=== PATIENT | female | born 1940 | race Caucasian/White ===

== ENCOUNTER 2016-08-01 11:17 | Inpatient (IN) | payer MEDICARE ==
[~2016-08-01] VITALS: Ht 167.6 cm; Wt 94.3 kg
[~2016-08-01 11:17] MED LIST: AMBI5TAB PO; CEPH500C3 PO; CIPR750T10 PO; DILT31TA PO; NITR25SU PO; STOO100C PO
[2016-08-01 11:24] VITALS: BP 117/62; PULSE 93; RESP 16; TEMP 97.7; O2SAT 95
[2016-08-01] MEDS ORDERED: PROCHLORPERAZINE INJ 10 MG/2 ML VIAL IV PUSH ONE (11:45)
[2016-08-01] MEDS ORDERED: SODIUM CHLORIDE 0.9% FLUSH 10 ML FLUSH IVF PRN (11:45)
[2016-08-01] MEDS ORDERED: diphenhydrAMINE HCL 50 MG/ML VIAL IV PUSH ONE (11:45)
[2016-08-01] MEDS ORDERED: SODIUM CHLOR 0.9% 1000 ML INJ 1,000 ML IV ONE ×2 (11:45)
--- NOTE | 2016-08-01 11:49 | PD ---
HPI . Nausea and vomiting and dehydration Chief Complaint: GI Complaint Time Seen by Provider: 11:32 Travel History International Travel<30 days: No Contact w/Intl Traveler<30days: No Traveled to known affect area: No History of Present Illness HPI The patient presents with a 4 to five-day history of nausea and vomiting. Her symptoms have waxed and waned. She is occasionally able to tolerate food and fluids. She denies any diarrhea. She denies any abdominal pain. She has had some chills and shaking. The patient reports dysuria at the onset of her symptoms. She called her doctor and was given a prescription for Macrobid. That was started on 07/28. She subsequently obtained a prescription for Zofran on 07/29. The patient reports that she is getting worse rather than better with this treatment. She has stopped both medications as of yesterday. Patient now reports markedly decreased urine output. She no longer has dysuria. 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) Cardiovascular Problems: No Endocrine: No Gastrointestinal Disorders: Yes (anal ca) Genitourinary: Yes (recurrent uti's 2ndary to cervical ca 20 years states urethra damaged and h) Immune Disorder: No Implanted Vascular Access Dvce: Yes Kidney Stones: No Musculoskeletal: No Neurologic: No Psychiatric: No Reproductive: No Respiratory: No Renal Failure: No Menopausal: Yes Past Surgical History Abdominal Surgery: No Cardiac Surgery: No Cholecystectomy: Yes Ear Surgery: No Endocrine Surgery: No Eye Surgery: No Genitourinary Surgery: No Gynecologic Surgery: No Neurologic Surgery: No Oral Surgery: No Thoracic Surgery: No Other Surgery: No Social History Alcohol Use: No Tobacco Use: No Substance Use: No Allergies-Medications (Allergen,Severity, Reaction): Coded Allergies: Sulfa (Verified Allergy, Severe, 08/01/16) DISORIENTATION / VOMITING Reported Meds & Prescriptions Reported Meds & Active Scripts Active Reported Prilosec (Omeprazole Magnesium) 20 Mg Tab 2 Tab PO DAILY Diltiazem (Diltiazem HCl) 30 Mg Tab 15 Mg PO HS Ambien (Zolpidem Tartrate) 5 Mg Tab 5 Mg PO HS PRN Cipro (Ciprofloxacin HCl) 500 Mg Tab 500 Mg PO DAILY Review of Systems Except as stated in HPI: all other systems reviewed are Neg General / Constitutional: Positive: Chills HENT: Positive: Other (dry mouth) Gastrointestinal: Positive: Nausea, Vomiting, No: Diarrhea, Abdominal Pain Genitourinary: Positive: Decreased Urinary Output Physical Exam Narrative GENERAL: Awake and alert and in no acute distress. SKIN: Warm and dry. HEAD: Atraumatic. Normocephalic. EYES: Pupils equal and round. ENT: No nasal bleeding or discharge. Mucous membranes pink but dry. NECK: Trachea midline. Neck is supple. CARDIOVASCULAR: Regular rate and rhythm. RESPIRATORY: No accessory muscle use. GASTROINTESTINAL: Abdomen soft, non-tender, nondistended. MUSCULOSKELETAL: No obvious deformities. No edema. NEUROLOGICAL: Awake and alert. No obvious cranial nerve deficits. Motor grossly within normal limits. Normal speech. PSYCHIATRIC: Appropriate mood and affect; insight and judgment normal. Data Data Last Documented VS Vital Signs Date Time Temp Pulse Resp B/P Pulse Ox O2 Delivery O2 Flow Rate FiO2 08/01/16 12:50 84 16 123/57 100 Room Air 08/01/16 11:24 97.7 Orders Complete Blood Count With Diff (08/01/16 11:38) Comprehensive Metabolic Panel (08/01/16 11:38) Urinalysis - C+S If Indicated (08/01/16 11:38) Iv Access Insert/Monitor (08/01/16 11:38) Sodium Chlor 0.9% 1000 Ml Inj (Ns 1000 M (08/01/16 11:45) Sodium Chloride 0.9% Flush (Ns Flush) (08/01/16 11:45) Sodium Chlor 0.9% 1000 Ml Inj (Ns 1000 M (08/01/16 11:45) Sodium Chlor 0.9% 1000 Ml Inj (Ns 1000 M (08/01/16 11:45) Prochlorperazine Inj (Compazine Inj) (08/01/16 11:45) Diphenhydramine Inj (Benadryl Inj) (08/01/16 11:45) Urine Culture (08/01/16 11:40) Ceftriaxone Inj (Rocephin Inj) (08/01/16 13:15) Ct Abd/Pel W Iv Contrast(Rout) (08/01/16 13:20) Labs Laboratory Tests Test 08/01/16 08/01/16 11:40 12:05 Urine Collection Type CLEAN CATCH Urine Color RENALDO Urine Turbidity CLEAR Urine pH 5.0 Urine Specific [place] 1.032 Urine Protein 100 mg/dL Urine Glucose (UA) NEG mg/dL Urine Ketones 80 OR GREATER mg/dL Urine Occult Blood TRACE Urine Nitrite NEG Urine Bilirubin SMALL Urine Leukocyte Esterase TRACE Urine RBC 4-9 /hpf Urine WBC 20-24 /hpf Urine WBC Clumps FEW Urine Squamous Epithelial 6-8 /hpf Cells Urine Renal Epithelial Cells 0-5 /hpf Microscopic Urinalysis Comment CULTURE INDICATED Urine Collection Time 11:40 White Blood Count 11.4 TH/MM3 Red Blood Count 5.06 MIL/MM3 Hemoglobin 14.7 GM/DL Hematocrit 43.2 % Mean Corpuscular Volume 85.3 FL Mean Corpuscular Hemoglobin 29.0 PG Mean Corpuscular Hemoglobin 34.0 % Concent Red Cell Distribution Width 12.8 % Platelet Count 195 TH/MM3 Mean Platelet Volume 9.2 FL Neutrophils (%) (Auto) 92.9 % Lymphocytes (%) (Auto) 3.0 % Monocytes (%) (Auto) 3.0 % Eosinophils (%) (Auto) 0.5 % Basophils (%) (Auto) 0.6 % Neutrophils # (Auto) 10.6 TH/MM3 Lymphocytes # (Auto) 0.3 TH/MM3 Monocytes # (Auto) 0.3 TH/MM3 Eosinophils # (Auto) 0.1 TH/MM3 Basophils # (Auto) 0.1 TH/MM3 CBC Comment DIFF FINAL Differential Comment Sodium Level 139 MEQ/L Potassium Level 3.5 MEQ/L Chloride Level 102 MEQ/L Carbon Dioxide Level 26.9 MEQ/L Anion Gap 10 MEQ/L Blood Urea Nitrogen 20 MG/DL Creatinine 0.89 MG/DL Estimat Glomerular Filtration 62 ML/MIN Rate Random Glucose 115 MG/DL Calcium Level 9.3 MG/DL Total Bilirubin 3.2 MG/DL Aspartate Amino Transf 197 U/L (AST/SGOT) Alanine Aminotransferase 339 U/L (ALT/SGPT) Alkaline Phosphatase 271 U/L Total Protein 7.2 GM/DL Albumin 2.9 GM/DL [facility] Medical Decision Making Medical Screen Exam Complete: Yes Emergency Medical Condition: Yes Medical Record Reviewed: Yes (past medical history is significant for both cervical and anal cancer. She underwent radiation therapy. 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 She is on prophylactic Cipro.) Differential Diagnosis Differential diagnosis includes but is not limited to viral gastritis, food poisoning, pancreatitis, pneumonia, hepatitis, acute coronary syndrome, Narrative Course Patient presents with nausea and vomiting and very poor urinary output. She will be hydrated here. Routine labs and ordered. CBC & BMP Diagram 08/01/16 12:05 T bili 3.2 AST 197 ALT 339 alk phos 271 UA>>trace LE, 20-24 WBC, + WBC clumps Physician Communication Physician Communication Case discussed with who has requested a CT of her abdomen and pelvis to further evaluate her elevated LFTs. He will admit the patient. Diagnosis Primary Impression: Dehydration Additional Impressions: UTI (urinary tract infection) Qualified Code: N30.00 - Acute cystitis without hematuria Elevated LFTs Admitting Information Admitting Physician Requests: Admit Condition: Stable Althea Mccoy MD Aug 01, 2016 11:49
[2016-08-01 11:56] LABS: BLOOD, URINE TRACE (NEG); GLUCOSE,URINE NEG (NEG); NITRITE,URINE NEG (NEG)
[2016-08-01 12:04] LABS: KETONE, URINE 80 OR GREATER mg/dL (NEG)
[2016-08-01] MEDS: SODIUM CHLOR 0.9% 1000 ML INJ 1,000 ML IV SCH ×4 (12:11→14:45)
[2016-08-01 12:13] LABS: METHOD OF COLLECTION CLEAN CATCH; URINE COLOR AMBER (YELLW/STRAW)
[2016-08-01 12:14] LABS: COMMENT (UR) CULTURE INDICATED; CULTURE IF INDICATED CULTURE INDICATED; RENAL EPITHELIAL CELLS 0-5 /hpf
[2016-08-01 12:16] LABS: AUTOMATED NEUTROPHIL # 10.6 TH/MM3 (1.8-7.7); BASOPHIL # 0.1 TH/MM3 (0-0.2); BASOPHIL % 0.6 % (0.0-2.0); EOSINOPHIL # 0.1 TH/MM3 (0-0.4); EOSINOPHIL % 0.5 % (0.0-4.0); HEMATOCRIT 43.2 % (35.0-46.0); LYMPHOCYTE # 0.3 TH/MM3 (1.0-4.8); MEAN CELL VOLUME 85.3 FL (80.0-100.0); NEUT % 92.9 % (16.0-70.0); PLATELET COUNT 195 TH/MM3 (150-450); RED BLOOD COUNT 5.06 MIL/MM3 (4.00-5.30); RED CELL DISTRIBUTION WIDTH 12.8 % (11.6-17.2); WHITE BLOOD COUNT 11.4 TH/MM3 (4.0-11.0)
[2016-08-01 12:19] LABS: HEMO FLAGS DIFF FINAL
[2016-08-01 12:23] LABS: CHLORIDE 102 MEQ/L (98-107); POTASSIUM 3.5 MEQ/L (3.5-5.1); SODIUM (NA) 139 MEQ/L (136-145)
[2016-08-01] MEDS ORDERED: PRIL20TA2 PO (12:24)
[2016-08-01] MEDS ORDERED: DILT30TA PO (12:24)
[2016-08-01] MEDS ORDERED: CIPR-9 PO (12:24)
[2016-08-01] MEDS ORDERED: AMBI5TAB PO (12:24)
[2016-08-01 12:28] LABS: ANION GAP 10 MEQ/L (5-15); BICARBONATE 26.9 MEQ/L (21.0-32.0)
[2016-08-01 12:29] LABS: BLOOD UREA NITROGEN 20 MG/DL (7-18)
[2016-08-01 12:32] LABS: ALT (GPT) 339 U/L (10-53); AST (GOT) 197 U/L (15-37); GLOMERULAR FILTRATION RATE 62 ML/MIN (>89)
[2016-08-01 12:33] LABS: TOTAL BILIRUBIN ADULT 3.2 MG/DL (0.2-1.0)
[2016-08-01 12:34] LABS: ALKALINE PHOSPHATASE 271 U/L (45-117)
[2016-08-01 12:50] VITALS: BP 123/57; PULSE 84; RESP 16; O2SAT 100
[2016-08-01] MEDS ORDERED: cefTRIAXone INJ 1,000 MG in SODIUM CHLORIDE 0.9% INJ 100 ML IV ONE (13:15)
[2016-08-01] MEDS ORDERED: NALOXONE HCL 0.4 MG/ML AMP IV PRN (13:45)
[2016-08-01 13:51] VITALS: BP 127/52; PULSE 84; RESP 18; O2SAT 100
[2016-08-01] MEDS ORDERED: MAGNESIUM HYDROXIDE SUSP 30 ML CUP PO PRN (14:00)
[2016-08-01] MEDS ORDERED: BISACODYL 10 MG SUPP RECTAL PRN (14:00)
[2016-08-01] MEDS ORDERED: LACTULOSE SYRUP 20 GM/30 ML CUP PO PRN (14:00)
[2016-08-01] MEDS ORDERED: ONDANSETRON HCL 4 MG/2 ML VIAL IVP PRN (14:00)
[2016-08-01] MEDS ORDERED: MULTTAB67 PO (14:00)
[2016-08-01] MEDS ORDERED: SENNOSIDES 8.6 MG TAB PO PRN (14:00)
[2016-08-01] MEDS ORDERED: SODIUM CHLOR 0.45% 1000 ML INJ 1,000 ML IV SCH (14:00)
[2016-08-01] MEDS ORDERED: IOHEXOL 350 MG/ML 10 ML VIAL (for RAD DIAG) IV ONE (14:33)
--- NOTE | 2016-08-01 14:38 | RADHPO ---
EXAM DATE/TIME: 08/01/2016 14:10 [facility] COMPARISON: No previous studies available for comparison. INDICATIONS : Urine tract infection, dehydration, nausea. Abnormal liver tests. IV CONTRAST: 96 cc Omnipaque 350 (iohexol) IV ORAL CONTRAST: No oral contrast ingested. RADIATION DOSE: 21.06 CTDIvol (mGy) MEDICAL HISTORY : None SURGICAL HISTORY : None. ENCOUNTER: Initial ACUITY: 1 day PAIN SCALE: 5/10 LOCATION: Right abdomen TECHNIQUE: Volumetric scanning of the abdomen and pelvis was performed. Using automated exposure control and ad justment of the mA and/or kV according to patient size, radiation dose was kept as low as reasonably achievable to obtain optimal diagnostic quality images. FINDINGS: LOWER LUNGS: The visualized lower lungs are clear. LIVER: Homogeneous density without concerning lesion. There is an 8mm left hepatic cyst. There is no dilati on of the biliary tree. There are clips in the gallbladder fossa related to prior cholecystectomy.. SPLEEN: Normal size without lesion. PANCREAS: Within normal limits. KIDNEYS: Normal in size and shape. There is no mass, stone or hydronephrosis. There is fullness of the collec ting systems versus renal sinus cysts. There is no hydroureter. ADRENAL GLANDS: Within normal limits. VASCULAR: There is no aortic aneurysm. There is severe atherosclerotic disease. BOWEL/MESENTERY: The stomach, small bowel, and colon demonstrate no acute abnormality. There is no free intraperitone al air or fluid. ABDOMINAL WALL: Within normal limits. RETROPERITONEUM: There is no lymphadenopathy. There is abnormal thickening of the fascial planes within the pelvis bridger ng with retrorectal soft tissue thickening. There is extraperitoneal calcification in the right infer ior pelvis. BLADDER: No wall thickening or mass. REPRODUCTIVE: There is a hypo-enhancing mass in the region of the uterine body or fundus measuring approximately 2. 2 cm. INGUINAL: There is no lymphadenopathy or hernia. MUSCULOSKELETAL: There are degenerative changes of the spine. CONCLUSION: 1. There are pelvic changes characteristic of prior radiation therapy consistent with the patient's h istory. 2. There is a 2.2 cm hypoenhancing mass in the region of the uterine body or fundus. While this could represent a fibroid it is nonspecific. Suggest correlating with any prior imaging studies. Ultrasoun d could further evaluate if needed clinically. 3. Nonacute findings include mild hepatomegaly and severe atherosclerotic disease. Chris Brizuela MD on August 01, 2016 at 14:26 Board Certified Radiologist. This report was verified electronically.
[2016-08-01 15:15] VITALS: BP 118/61; PULSE 73; RESP 18; TEMP 97.2; O2SAT 96
[2016-08-01] MEDS ORDERED: MORPHINE SULFATE 4 MG/ML INJ IV PUSH PRN (15:30)
[2016-08-01] MEDS: SODIUM CHLOR 0.45% 1000 ML INJ 1,000 ML IV SCH (15:34)
[2016-08-01] MEDS ORDERED: PILL SPLITTER OTHER PRN (15:45)
--- NOTE | 2016-08-01 15:48 | HHI.HP ---
HPI [facility] Primary Care Physician Larry Ko MD Admission Diagnosis UTI, dehydration, elevated LFTs Chief Complaint: uti ,elevated lft back pain nausea and vomit Travel History International Travel<30 Days: No Contact w/Intl Traveler <30 Da: No Traveled to Known Affected Are: No History of Present Illness 76 y/o female with hx many years ago cervical cancer,anal cancer who about 1 week ago began having flank like discomfort burning urination had cipro at home and started taking cipro felt a little better then symptoms recurred called her doctor med changed to macrobid and then had increasing N and V and nausea med called in ,no improvement and came to er found to have significant elevation LFT and uti admit for further evaluaion . Denies any rt sided abdominal pain. 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 SKIN: No rashes, ecchymoses or lesions. Cool and dry. HEAD: Atraumatic. Normocephalic. No temporal or scalp tenderness. EYES: Pupils equal round and reactive. Extraocular motions intact. No scleral icterus. No injection or drainage. ENT: Nose without bleeding, purulent drainage or septal hematoma. Throat without erythema, tonsillar hypertrophy or exudate. Uvula midline. Airway patent. NECK: Trachea midline. No JVD or lymphadenopathy. Supple, nontender, no meningeal signs. CARDIOVASCULAR: Regular rate and rhythm without murmurs, gallops, or rubs. RESPIRATORY: Clear to auscultation. Breath sounds equal bilaterally. No wheezes , rales, or rhonchi. GASTROINTESTINAL: Abdomen soft, non-tender, nondistended. No hepato-splenomegaly , or palpable masses. No guarding. MUSCULOSKELETAL: Extremities without clubbing, cyanosis, or edema. No joint tenderness, effusion, or edema noted. No calf tenderness. Negative Homans sign bilaterally. NEUROLOGICAL: Awake and alert. Cranial nerves II through XII intact. Motor and sensory grossly within normal limits. Five out of 5 muscle strength in all muscle groups. Normal speech. Laboratory Laboratory Tests Test 08/01/16 08/01/16 11:40 12:05 Urine Collection Type CLEAN CATCH Urine Color RENALDO Urine Turbidity CLEAR Urine pH 5.0 Urine Specific [place] 1.032 Urine Protein 100 Urine Glucose (UA) NEG Urine Ketones 80 OR GREATER Urine Occult Blood TRACE Urine Nitrite NEG Urine Bilirubin SMALL Urine Leukocyte Esterase TRACE Urine RBC 4-9 Urine WBC 20-24 Urine WBC Clumps FEW Urine Squamous Epithelial 6-8 Cells Urine Renal Epithelial Cells 0-5 Microscopic Urinalysis Comment CULTURE INDICATED Urine Collection Time 11:40 White Blood Count 11.4 Red Blood Count 5.06 Hemoglobin 14.7 Hematocrit 43.2 Mean Corpuscular Volume 85.3 Mean Corpuscular Hemoglobin 29.0 Mean Corpuscular Hemoglobin 34.0 Concent Red Cell Distribution Width 12.8 Platelet Count 195 Mean Platelet Volume 9.2 Neutrophils (%) (Auto) 92.9 Lymphocytes (%) (Auto) 3.0 Monocytes (%) (Auto) 3.0 Eosinophils (%) (Auto) 0.5 Basophils (%) (Auto) 0.6 Neutrophils # (Auto) 10.6 Lymphocytes # (Auto) 0.3 Monocytes # (Auto) 0.3 Eosinophils # (Auto) 0.1 Basophils # (Auto) 0.1 CBC Comment DIFF FINAL Differential Comment Sodium Level 139 Potassium Level 3.5 Chloride Level 102 Carbon Dioxide Level 26.9 Anion Gap 10 Blood Urea Nitrogen 20 Creatinine 0.89 Estimat Glomerular Filtration 62 Rate Random Glucose 115 Calcium Level 9.3 Total Bilirubin 3.2 Aspartate Amino Transf 197 (AST/SGOT) Alanine Aminotransferase 339 (ALT/SGPT) Alkaline Phosphatase 271 Total Protein 7.2 Albumin 2.9 Date/Time Procedure Status Source Growth 08/01/16 11:40 Urine Culture Received Urine Clean Catch Pending Result Diagram: 08/01/16 1205 08/01/16 1205 Imaging Last 24 hours Impressions Abdomen/Pelvis CT 08/01/16 1320 Signed Impressions: Service Date/Time: Monday, August 01, 2016 14:10 - CONCLUSION: 1. There are pelvic changes characteristic of prior radiation therapy consistent with the patient's history. 2. There is a 2.2 cm hypoenhancing mass in the region of the uterine body or fundus. While this could represent a fibroid it is nonspecific. Suggest correlating with any prior imaging studies. Ultrasound could further evaluate if needed clinically. 3. Nonacute findings include mild hepatomegaly and severe atherosclerotic disease. Chris Brizuela MD Course in er given IV fluids and started on rocephin Assessment and Plan Problem List: (1) UTI (urinary tract infection) Status: Acute Plan: start rocephin ,will obtain pelvic and renal ultrasound as CT shows ? mass in uterine area and hepatomegaly (2) Dehydration Status: Acute Plan: IV fluid recheck labs (3) Elevated LFTs Status: Acute Plan: IV fluid GI consult recheck labs Assessment and Plan further plan as case progresses Code Status full Discussed Condition With patient Physician Certification 2 Midnight Certification Type: Admission for Inpatient Services Order for Inpatient Services The services are ordered in accordance with Medicare regulations or non- Medicare payer requirements, as applicable. In the case of services not specified as inpatient-only, they are appropriately provided as inpatient services in accordance with the 2-midnight benchmark. Estimated LOS (days): 3 3 days is the estimated time the patient will need to remain in the hospital, assuming treatment plan goals are met and no additional complications. Post-Hospital Plan: Not yet determined Problem Qualifiers (1) UTI (urinary tract infection): Qualified Code: N30.00 - Acute cystitis without hematuria Rodrigo Alatorre MD Aug 01, 2016 15:48
[2016-08-01] MEDS: PANTOPRAZOLE SODIUM 40 MG VIAL IV PUSH SCH (16:03)
[2016-08-01] MEDS: traMADol HCL 50 MG TAB PO PRN (16:04)
--- NOTE | 2016-08-01 16:46 | PD.CONS ---
HPI History of Present Illness This is a 76 year old [lady] with hx anal ca, cervical ca who presented to hospital with n/v and was found to have elevated liver enzymes. A week ago she was having burning urination like she had a UTI and took cipro. THen her Dr gave her macrobid and she started having n/v. The few days she was taking macrobid she felt she had chills and sweats. She also noticed her urine appeared orange and thought it was from vitamin drink. Denied taking azo. SHe says in the she recalls being told she had elevated LFTs and had a liver bx but nothing was found; at the time she admits taking alot of tylenol. She is not currently taking tylenol but does admit freq use NSAIDs for back pain. SHe also takes viatmins, ambien, diltiazem, omeprazole. She has had a cholecystectomy. Denies n/v currenlty but has just received compazine. SHe denies abd pain now or prior but is very tender in the RUQ on exam. PFSH Past Medical History back pain osteoporosis OA cervical, anal ca Past Surgical History cholecystectomy Coded Allergies: Sulfa (Verified Allergy, Severe, 08/01/16) DISORIENTATION / VOMITING Medications Current Medications Medications (Trade) Dose Ordered Sig/Robinson Route PRN Reason Start Time Stop Time Status Last Admin Dose Admin Sodium Chloride (NS Flush) 2 ml UNSCH PRN IVF FLUSH AFTER USING IV ACCESS 08/01/16 11:45 Ondansetron HCl (Zofran Inj) 4 mg Q6H PRN IVP NAUSEA OR VOMITING 08/01/16 14:00 Naloxone HCl (Narcan Inj) 0.4 mg UNSCH PRN IV SEE LABEL COMMENTS 08/01/16 13:45 Senna/Docusate Sodium (Jennifer-Colace) 1 tab BID PO 08/01/16 21:00 Magnesium Hydroxide (Milk Of Magnesia Liq) 30 ml Q12H PRN PO MILD - MODERATE CONSTIPATION 08/01/16 14:00 Sennosides (Senokot) 17.2 mg Q12H PRN PO MODERATE - SEVERE CONSTIPATION 08/01/16 14:00 Bisacodyl (Dulcolax Supp) 10 mg DAILY PRN RECTAL SEVERE CONSITIPATION 08/01/16 14:00 Lactulose 30 ml 30 ml DAILY PRN PO SEVERE CONSITIPATION 08/01/16 14:00 Ceftriaxone Sodium/Sodium Chloride (Rocephin Inj/NS Inj) 100 ml @ 200 mls/hr Q24H IV 08/02/16 13:00 Diltiazem HCl (Cardizem) 15 mg HS PO 08/01/16 21:00 Zolpidem Tartrate (Ambien) 5 mg HS PRN PO INSOMNIA 08/01/16 15:30 Multivitamins (Theragran) 1 tab Q48H PO 08/02/16 21:00 Pantoprazole Sodium (Protonix Inj) 40 mg Q24H IV PUSH 08/01/16 16:00 08/01/16 16:03 Miscellaneous (Pill Splitter) 1 ea UNSCH PRN OTHER SEE LABEL COMMENTS 08/01/16 15:45 Morphine Sulfate (Morphine Inj) 2 mg Q3H PRN IV PUSH PAIN 5-10 08/01/16 15:30 Tramadol HCl 50 mg 50 mg Q12H PRN PO pain 1-5 08/01/16 15:30 08/01/16 16:04 Sodium Chloride (1/2 NS 1000 ml Inj) 1,000 ml @ 75 mls/hr [id number] IV 08/01/16 15:45 08/01/16 15:34 Family History unk, pt adopted Social History no ETOH or prior hx heavy drinking quit smoking 15 y ago no illicit drug use Review of Systems Constitutional: COMPLAINS OF: Chills, DENIES: Fever Eyes: DENIES: Blurred vision Ears, nose, mouth, throat: DENIES: Hearing loss Respiratory: DENIES: Cough Cardiovascular: DENIES: Chest pain Gastrointestinal: COMPLAINS OF: Nausea, Vomiting, DENIES: Abdominal pain, Black stools, Bloody stools, Constipation, Diarrhea, Swelling of Abdomen, Hematemesis Genitourinary: DENIES: Hematuria Musculoskeletal: DENIES: Muscle aches Integumentary: DENIES: Abnormal pigmentation Neurologic: DENIES: Abnormal gait Psychiatric: DENIES: Confusion GI Exam Vitals I&O Vital Signs Date Time Temp Pulse Resp B/P Pulse Ox O2 Delivery O2 Flow Rate FiO2 08/01/16 15:15 97.2 73 18 118/61 96 08/01/16 13:51 84 18 127/52 100 Room Air 08/01/16 12:50 84 16 123/57 100 Room Air 08/01/16 11:24 97.7 93 16 117/62 95 I/O 07/31/16 07/31/16 07/31/16 08/01/16 08/01/16 08/01/16 07:00 15:00 23:00 07:00 15:00 23:00 Intake Total 2100 ml 1000 ml Balance 2100 ml 1000 ml Intake IV Total 2100 ml 1000 ml # Voids 1 Imaging Last Impressions Abdomen/Pelvis CT 08/01/16 1320 Signed Impressions: Service Date/Time: Wednesday, August 01, 2016 14:10 - CONCLUSION: 1. There are pelvic changes characteristic of prior radiation therapy consistent with the patient's history. 2. There is a 2.2 cm hypoenhancing mass in the region of the uterine body or fundus. While this could represent a fibroid it is nonspecific. Suggest correlating with any prior imaging studies. Ultrasound could further evaluate if needed clinically. 3. Nonacute findings include mild hepatomegaly and severe atherosclerotic disease. Chris Brizuela MD Laboratory Test 08/01/16 08/01/16 11:40 12:05 Urine Collection Type CLEAN CATCH Urine Color RENALDO Urine Turbidity CLEAR Urine pH 5.0 Urine Specific [place] 1.032 Urine Protein 100 mg/dL Urine Glucose (UA) NEG mg/dL Urine Ketones 80 OR GREATER mg/dL Urine Occult Blood TRACE Urine Nitrite NEG Urine Bilirubin SMALL Urine Leukocyte Esterase TRACE Urine RBC 4-9 /hpf Urine WBC 20-24 /hpf Urine WBC Clumps FEW Urine Squamous Epithelial 6-8 /hpf Cells Urine Renal Epithelial Cells 0-5 /hpf Microscopic Urinalysis Comment CULTURE INDICATED Urine Collection Time 11:40 White Blood Count 11.4 TH/MM3 Red Blood Count 5.06 MIL/MM3 Hemoglobin 14.7 GM/DL Hematocrit 43.2 % Mean Corpuscular Volume 85.3 FL Mean Corpuscular Hemoglobin 29.0 PG Mean Corpuscular Hemoglobin 34.0 % Concent Red Cell Distribution Width 12.8 % Platelet Count 195 TH/MM3 Mean Platelet Volume 9.2 FL Neutrophils (%) (Auto) 92.9 % Lymphocytes (%) (Auto) 3.0 % Monocytes (%) (Auto) 3.0 % Eosinophils (%) (Auto) 0.5 % Basophils (%) (Auto) 0.6 % Neutrophils # (Auto) 10.6 TH/MM3 Lymphocytes # (Auto) 0.3 TH/MM3 Monocytes # (Auto) 0.3 TH/MM3 Eosinophils # (Auto) 0.1 TH/MM3 Basophils # (Auto) 0.1 TH/MM3 CBC Comment DIFF FINAL Differential Comment Sodium Level 139 MEQ/L Potassium Level 3.5 MEQ/L Chloride Level 102 MEQ/L Carbon Dioxide Level 26.9 MEQ/L Anion Gap 10 MEQ/L Blood Urea Nitrogen 20 MG/DL Creatinine 0.89 MG/DL Estimat Glomerular Filtration 62 ML/MIN Rate Random Glucose 115 MG/DL Calcium Level 9.3 MG/DL Total Bilirubin 3.2 MG/DL Aspartate Amino Transf 197 U/L (AST/SGOT) Alanine Aminotransferase 339 U/L (ALT/SGPT) Alkaline Phosphatase 271 U/L Total Protein 7.2 GM/DL Albumin 2.9 GM/DL Date/Time Procedure Status Source Growth 08/01/16 11:40 Urine Culture Received Urine Clean Catch Pending Physical Examination HEENT: PERRL; atraumatic; no jaundice. CHEST: CTA CARDIAC: RRR ABDOMEN: Soft, obese, TTP RUQ, right flank; bowel sounds are present in all four quadrants. EXTREMITIES: No clubbing, cyanosis, or edema. SKIN: Normal; no rash; no jaundice. CARDIOVASCULAR PHYSICIAN ASSISTANT: No focal deficits; alert and oriented times three. Assessment and Plan Plan ASSESSMENT - elevated LFTs - Tbil 3.2 but does not appear jaundiced, AST 197, ALT 339, ALP 271. s/p cholcystectomy. liver bx 90s but recalls no abnormal findings. US, liver w/u - n/v - unclear etiology, onset few days ago. PLAN - [facility] MA, ceruloplasmin, alpha 1 antitrypsin, iron studies, hep panel - US liver - ARTHUR - further recommendations to follow THis pt seen by myself and DR Pino and this note is written on his behalf Rosemarie Foley Aug 01, 2016 16:46
--- NOTE | 2016-08-01 17:50 | RADHPO ---
EXAM DATE/TIME: 08/01/2016 16:56 [facility] COMPARISON: CT ABDOMEN & PELVIS W CONTRAST, August 01, 2016, 14:10. INDICATIONS : Pelvic mass seen on prior CT. MEDICAL HISTORY : Carcinoma, anal. Cervical cancer. UTI. MRSA. SURGICAL HISTORY : Cholecystectomy. ENCOUNTER: Initial ACUITY: 1 day PAIN SCORE: 0/10 LOCATION: Bilateral pelvis MEASUREMENTS: UTERUS: 8.1 x 6.2 x 4.1 cm ENDOMETRIAL STRIPE: Vaguely seen, probably around 21 mm in thickness RIGHT OVARY: Non visualized LEFT OVARY: Non visualized FINDINGS: The study is limited. Patient refused transvaginal imaging. The uterus is small. Central echogenic ar ea measuring at least 21 mm in thickness is thought to represent the endometrium. No fluid seen in th e uterine cavity. Neither ovary well seen. No evidence of an adnexal mass. CONCLUSION: Study limited by body habitus and patient refusing transvaginal imaging. Suspected endometrial thicke thalia and further evaluation is warranted, either a transvaginal study when clinically feasible or end ometrial biopsy. Chris Mojica MD on August 01, 2016 at 17:44 Board Certified Radiologist. This report was verified electronically.
--- NOTE | 2016-08-01 17:56 | RADHPO ---
EXAM DATE/TIME: 08/01/2016 16:46 [facility] COMPARISON: CT ABDOMEN & PELVIS W CONTRAST, August 01, 2016, 14:10. INDICATIONS : Bilateral flank pain. MEDICAL HISTORY : Carcinoma, anal. Cervical cancer. UTI. MRSA. SURGICAL HISTORY : Cholecystectomy. ENCOUNTER: Initial ACUITY: 1 day PAIN SCORE: 9/10 LOCATION: Bilateral flank MEASUREMENTS: RIGHT KIDNEY: 11.6 x 5.4 x 5.5 cm LEFT KIDNEY: 11.1 x 6.0 x 6.3 cm FINDINGS: RIGHT KIDNEY: 7 x 6 x 7 mm apparent calcification in the mid right kidney likely reflects a calculus. The right tanner al pelvis is mildly ectatic. No focal mass. Normal cortical echogenicity. LEFT KIDNEY: Normal cortical echogenicity without focal mass or stone. Slight prominence of the renal calyces. BLADDER: Within normal limits given the degree of distension. CONCLUSION: 1. 7 x 6 x 7 mm apparent calcification in the mid right kidney does not correlate to a radiopaque abn ormality on recent CT exam. Differential considerations include nonobstructing calyceal stone versus artifact. 2. Mild right pelviectasis with slight caliectasis on the left. This appears unchanged from recent CT examination. This may be related to sluggish uretral flow from prior pelvic radiation. Ankit Linn MD on August 01, 2016 at 17:47 Board Certified Radiologist. This report was verified electronically.
[2016-08-01] MEDS: DOCUSATE SODIUM 50 MG/SENNA 8.6 MG TAB PO SCH (20:30)
[2016-08-01] MEDS: DILTIAZEM HCL 30 MG TAB PO SCH (20:32)
[2016-08-01 20:51] VITALS: BP 115/54; PULSE 72; RESP 16; TEMP 96.7; O2SAT 94
[2016-08-01] MEDS: ZOLPIDEM TARTRATE 5 MG TAB PO PRN (22:34)
[2016-08-02 00:04] VITALS: BP 108/58; PULSE 79; RESP 18; TEMP 97; O2SAT 96
[2016-08-02] MEDS: SODIUM CHLOR 0.45% 1000 ML INJ 1,000 ML IV SCH ×2 (05:20→16:19)
[2016-08-02 07:22] LABS: AUTOMATED NEUTROPHIL # 7.6 TH/MM3 (1.8-7.7); BASOPHIL % 0.1 % (0.0-2.0); EOSINOPHIL # 0.2 TH/MM3 (0-0.4); EOSINOPHIL % 2.2 % (0.0-4.0); HEMATOCRIT 35.9 % (35.0-46.0); LYMPH % 12.8 % (9.0-44.0); LYMPHOCYTE # 1.2 TH/MM3 (1.0-4.8); MEAN CELL VOLUME 86.2 FL (80.0-100.0); MEAN CORPUSCULAR HEMOGLOBIN 28.8 PG (27.0-34.0); MEAN CORPUSCULAR HGB CONC 33.4 % (32.0-36.0); MONO % 3.9 % (0.0-8.0); PLATELET COUNT 188 TH/MM3 (150-450); RED BLOOD COUNT 4.16 MIL/MM3 (4.00-5.30); WHITE BLOOD COUNT 9.4 TH/MM3 (4.0-11.0)
[2016-08-02 07:32] LABS: CHLORIDE 106 MEQ/L (98-107); SODIUM (NA) 141 MEQ/L (136-145)
[2016-08-02 07:42] LABS: HEMO FLAGS DIFF FINAL
[2016-08-02 07:56] VITALS: BP 149/71; PULSE 76; RESP 20; TEMP 97.4; O2SAT 98
[2016-08-02 07:56] LABS: ALKALINE PHOSPHATASE 200 U/L (45-117); ALT (GPT) 228 U/L (10-53); ANION GAP 9 MEQ/L (5-15); AST (GOT) 101 U/L (15-37); BLOOD UREA NITROGEN 10 MG/DL (7-18); GLOMERULAR FILTRATION RATE 100 ML/MIN (>89); TOTAL BILIRUBIN ADULT 1.4 MG/DL (0.2-1.0)
--- NOTE | 2016-08-02 08:20 | RADHPO ---
EXAM DATE/TIME: 08/02/2016 07:16 [facility] COMPARISON: No previous studies available for comparison. INDICATIONS : Increased lab values. MEDICAL HISTORY : Carcinoma, anal. Cervical cancer. UTI. MRSA. SURGICAL HISTORY : Cholecystectomy. ENCOUNTER: Initial ACUITY: 2 days PAIN SCORE: 2/10 LOCATION: Bilateral upper quadrant MEASUREMENTS: LIVER: 16.9 cm length COMMON DUCT: 5 mm RIGHT KIDNEY: 12.5 x 4.7 x 5.2 cm SPLEEN: 11.7 cm length FINDINGS: Pancreas not well-visualized. Fatty liver minimally enlarged. Gallbladder surgically absent. No bilia ry ductal dilatation. Possible 6 mm calculus midpole right kidney. There is mild right hydronephrosis . Splenic granulomata noted. No free fluid. CONCLUSION: 1. Mild right sided hydronephrosis of uncertain etiology. There is a possible calculus midpole right kidney which does not appear to be related to the hydronephrosis. Cholecystectomy without biliary kim oneida dilatation. Parish Jeff MD on August 02, 2016 at 8:07 Board Certified Radiologist. This report was verified electronically.
[2016-08-02] MEDS: DOCUSATE SODIUM 50 MG/SENNA 8.6 MG TAB PO SCH ×2 (08:24→21:00)
[2016-08-02] MEDS ORDERED: POTASSIUM CHLORIDE 20 MEQ CONTROLLED RELEASE TAB PO ONE (10:00)
--- NOTE | 2016-08-02 11:33 | HHI.PR ---
Subjective Remarks Patient feeling better wants to eat ,labs show imporving liver function and GI has ordered several more lab tests ,ultrasound liver unremarkable as well as pelvic and renal ultrasound there is ? mass on CT and pelvic inuterine area will refer to sample sawyer as out patient potassium was low given PO supplement. Advance diet probable discharge tomorrow will set up out patient treatment for antibiotic Objective Vitals GENERAL: SKIN: Warm and dry. HEAD: Atraumatic. Normocephalic. EYES: Pupils equal and round. No scleral icterus. No injection or drainage. ENT: No nasal bleeding or discharge. Mucous membranes pink and moist. NECK: Trachea midline. No JVD. CARDIOVASCULAR: Regular rate and rhythm. RESPIRATORY: No accessory muscle use. Clear to auscultation. Breath sounds equal bilaterally. GASTROINTESTINAL: Abdomen soft, non-tender, nondistended. Hepatic and splenic margins not palpable. MUSCULOSKELETAL: Extremities without clubbing, cyanosis, or edema. No obvious deformities. NEUROLOGICAL: Awake and alert. No obvious cranial nerve deficits. Motor grossly within normal limits. Five out of 5 muscle strength in the arms and legs. Normal speech. PSYCHIATRIC: Appropriate mood and affect; insight and judgment normal. Vital Signs Date Time Temp Pulse Resp B/P Pulse Ox O2 Delivery O2 Flow Rate FiO2 08/02/16 07:56 97.4 76 20 149/71 98 08/02/16 04:16 08/02/16 00:04 97.0 79 18 108/58 96 08/01/16 20:51 96.7 72 16 115/54 94 08/01/16 17:04 18 08/01/16 15:15 97.2 73 18 118/61 96 08/01/16 13:51 84 18 127/52 100 Room Air 08/01/16 12:50 84 16 123/57 100 Room Air 08/01/16 08/01/16 08/02/16 15:00 23:00 07:00 Intake Total 2100 ml 1862 ml 800 ml Balance 2100 ml 1862 ml 800 ml Intake Oral 600 ml IV Total 2100 ml 1262 ml 800 ml # Voids 1 2 Result Diagram: 08/02/16 0635 08/02/16 0635 Imaging Last 24 hours Impressions Abdomen/Pelvis CT 08/01/16 1320 Signed Impressions: Service Date/Time: Monday, August 01, 2016 14:10 - CONCLUSION: 1. There are pelvic changes characteristic of prior radiation therapy consistent with the patient's history. 2. There is a 2.2 cm hypoenhancing mass in the region of the uterine body or fundus. While this could represent a fibroid it is nonspecific. Suggest correlating with any prior imaging studies. Ultrasound could further evaluate if needed clinically. 3. Nonacute findings include mild hepatomegaly and severe atherosclerotic disease. Chris Brizuela MD A/P Problem List: (1) UTI (urinary tract infection) Status: Acute Plan: start rocephin ,CT ultrasound ?mass in uterine area and hepatomegaly will refer to sample sawyer as outpatient responding to treatment will arrange for out patient treatment for UTI (2) Dehydration Status: Acute Plan: improved advance diet (3) Elevated LFTs Status: Acute Plan: labs improving Assessment and Plan probable need home health for follow up Discharge Planning consult home health for Rocephin IV at home for 4 days Problem Qualifiers (1) UTI (urinary tract infection): Qualified Code: N30.00 - Acute cystitis without hematuria Rodrigo Alatorre MD Aug 02, 2016 11:33
--- NOTE | 2016-08-02 11:38 | HHI.FF ---
Face to Face Verification Diagnosis: (1) UTI (urinary tract infection) Physical Therapy Order: Improve ambulation, Strength and gait training Home Health Nursing Order: IV medication administration I have seen patient Zuleima Tapia on 08/02/16. My clinical findings support the need for the requested home health care services because: Injectable med education/admin I certify that my clinical findings support that this patient is homebound because: Unsteady gait/balance Patient will need rocephin 1gm IV wednesday ,wednesday via home health Rodrigo Alatorre MD Aug 02, 2016 11:38
[2016-08-02 12:00] VITALS: BP 172/85; PULSE 72; RESP 20; TEMP 96.5; O2SAT 98
[2016-08-02] MEDS: cefTRIAXone INJ 1,000 MG in SODIUM CHLORIDE 0.9% INJ 100 ML IV SCH (12:01)
[2016-08-02 13:41] LABS: TRANSFERRIN IRON PROFILE 140 MG/DL (200-360)
--- NOTE | 2016-08-02 14:21 | HHI.GIFU ---
Subjective Remarks patient is doing well, some back discomfort, no GI symptom, no H/O of liver issues, found to have UTI Objective Vitals I&O Vital Signs Date Time Temp Pulse Resp B/P Pulse Ox O2 Delivery O2 Flow Rate FiO2 08/02/16 12:00 96.5 72 20 172/85 98 08/02/16 07:56 97.4 76 20 149/71 98 08/02/16 04:16 08/02/16 00:04 97.0 79 18 108/58 96 08/01/16 20:51 96.7 72 16 115/54 94 08/01/16 17:04 18 08/01/16 15:15 97.2 73 18 118/61 96 I/O 08/01/16 08/01/16 08/01/16 08/02/16 08/02/16 08/02/16 07:00 15:00 23:00 07:00 15:00 23:00 Intake Total 2100 ml 1862 ml 800 ml 750 ml Balance 2100 ml 1862 ml 800 ml 750 ml Intake Oral 600 ml 750 ml IV Total 2100 ml 1262 ml 800 ml # Voids 1 2 5 Laboratory Laboratory Tests Test 08/02/16 06:35 White Blood Count 9.4 Red Blood Count 4.16 Hemoglobin 12.0 Hematocrit 35.9 Mean Corpuscular Volume 86.2 Mean Corpuscular Hemoglobin 28.8 Mean Corpuscular Hemoglobin 33.4 Concent Red Cell Distribution Width 13.0 Platelet Count 188 Mean Platelet Volume 9.6 Neutrophils (%) (Auto) 81.0 Lymphocytes (%) (Auto) 12.8 Monocytes (%) (Auto) 3.9 Eosinophils (%) (Auto) 2.2 Basophils (%) (Auto) 0.1 Neutrophils # (Auto) 7.6 Lymphocytes # (Auto) 1.2 Monocytes # (Auto) 0.4 Eosinophils # (Auto) 0.2 Basophils # (Auto) 0.0 CBC Comment DIFF FINAL Differential Comment Sodium Level 141 Potassium Level 3.0 Chloride Level 106 Carbon Dioxide Level 26.0 Anion Gap 9 Blood Urea Nitrogen 10 Creatinine 0.59 Estimat Glomerular Filtration 100 Rate Random Glucose 73 Calcium Level 7.9 Iron Level 39 Total Iron Binding Capacity 196 Percent Iron Saturation 19.9 Total Bilirubin 1.4 Aspartate Amino Transf 101 (AST/SGOT) Alanine Aminotransferase 228 (ALT/SGPT) Alkaline Phosphatase 200 Total Protein 6.0 Albumin 2.5 Date/Time Procedure Status Source Growth 08/01/16 11:40 Urine Culture - Preliminary Resulted Urine Clean Catch Gram Negative Freddie Physical Exam HEENT: Pupils round and reactive to light; normocephalic; atraumatic; no jaundice. Throat is clear. NECK: Neck is supple, no JVD, no lymphadenopathy. CHEST: Chest is clear to auscultation and percussion. CARDIAC: Regular rate and rhythm with no murmur gallop or rubs. ABDOMEN: Soft, nondistended, nontender; no hepatosplenomegaly; bowel sounds are present in all four quadrants. EXTREMITIES: No clubbing, cyanosis, or edema. SKIN: Normal; no rash; no jaundice. INSTANT PRINT OPERATOR: No focal deficits; alert and oriented times three. back pain Assessment and Plan Plan ASSESSMENT - elevated LFTs - Tbil 3.2 but does not appear jaundiced, AST 197, ALT 339, ALP 271. s/p cholcystectomy. liver bx 90s but recalls no abnormal findings. US, liver w/u - n/v - unclear etiology, onset few days ago. 08-02-16 doing better with significant improvement of LFTs, could be meds related or dehydration, underline fatty liver can not be rolled out, FR studies normal PLAN - f/u pending PAYAL SUNSHINE MA, ceruloplasmin, alpha 1 antitrypsin, iel - avoide NSAIDS - ARTHUR - fif continue to be elevated, may need Bx Susy Pino MD Aug 02, 2016 14:21
[2016-08-02 16:00] VITALS: BP 141/62; PULSE 81; RESP 20; TEMP 97.2; O2SAT 97
[2016-08-02] MEDS: traMADol HCL 50 MG TAB PO PRN (16:19)
[2016-08-02] MEDS: PANTOPRAZOLE SODIUM 40 MG VIAL IV PUSH SCH (16:19)
[2016-08-02 20:00] VITALS: BP 149/67; PULSE 79; RESP 18; TEMP 98.3; O2SAT 96
[2016-08-02] MEDS ORDERED: MULTIVITAMIN TAB PO SCH (21:00)
[2016-08-02] MEDS: DILTIAZEM HCL 30 MG TAB PO SCH (21:12)
[2016-08-02] MEDS: ZOLPIDEM TARTRATE 5 MG TAB PO PRN (21:12)
[2016-08-03] VITALS: BP 128/59; PULSE 75; RESP 18; TEMP 97; O2SAT 96
[2016-08-03] MEDS: traMADol HCL 50 MG TAB PO PRN (04:32)
[2016-08-03 06:49] LABS: CHLORIDE 104 MEQ/L (98-107); POTASSIUM 3.1 MEQ/L (3.5-5.1); SODIUM (NA) 141 MEQ/L (136-145)
[2016-08-03 06:58] LABS: ANION GAP 10 MEQ/L (5-15); BICARBONATE 26.9 MEQ/L (21.0-32.0); BLOOD UREA NITROGEN 7 MG/DL (7-18)
[2016-08-03 07:00] LABS: ALT (GPT) 158 U/L (10-53); AST (GOT) 51 U/L (15-37)
[2016-08-03 07:01] LABS: GLOMERULAR FILTRATION RATE 113 ML/MIN (>89)
[2016-08-03 07:03] LABS: ALKALINE PHOSPHATASE 170 U/L (45-117)
[2016-08-03] MEDS: SODIUM CHLOR 0.45% 1000 ML INJ 1,000 ML IV SCH (07:45)
[2016-08-03 08:00] VITALS: BP 142/72; PULSE 82; RESP 17; TEMP 97.7; O2SAT 92
[2016-08-03] MEDS: DOCUSATE SODIUM 50 MG/SENNA 8.6 MG TAB PO SCH (09:00)
[2016-08-03] MEDS ORDERED: POTASSIUM CHLORIDE 8 MEQ CAP PO SCH (09:00)
[2016-08-03] MEDS ORDERED: POTA8CAP PO (10:19)
--- NOTE | 2016-08-03 10:30 | HHI.DS ---
Discharge Summary Admission Date Aug 01, 2016 at 13:23 Admitting Diagnosis UTI, dehydration, elevated LFTs (1) UTI (urinary tract infection) Diagnosis: Principal (2) Dehydration Diagnosis: Secondary (3) Elevated LFTs Diagnosis: [facility] GI Brief History 76 y/o female with hx many years ago cervical cancer,anal cancer who about 1 week ago began having flank like discomfort burning urination had cipro at home and started taking cipro felt a little better then symptoms recurred called her doctor med changed to macrobid and then had increasing N and V and nausea med called in ,no improvement and came to er found to have significant elevation LFT and uti admit for further evaluaion . Denies any rt sided abdominal pain. CBC/BMP: 08/02/16 0635 08/03/16 0545 Significant Findings Laboratory Tests Test 08/01/16 08/01/16 08/02/16 08/03/16 11:40 12:05 06:35 05:45 Urine Color RENALDO (YELLW/STRAW) Urine Protein 100 mg/dL (NEG-TRACE) Urine Ketones 80 OR GREATER mg/dL (NEG) Urine Occult Blood TRACE (NEG) Urine Bilirubin SMALL (NEG) Urine Leukocyte Esterase TRACE (NEG) Urine RBC 4-9 /hpf (0-3) Urine WBC 20-24 /hpf (0-5) Urine WBC Clumps FEW (NONE) Urine Squamous Epithelial 6-8 /hpf (0-5) Cells Blood Urea Nitrogen 20 MG/DL (7-18) Estimat Glomerular Filtration 62 ML/MIN (>89) Rate Random Glucose 115 MG/DL 73 MG/DL (74-106) (74-106) Total Bilirubin 3.2 MG/DL 1.4 MG/DL (0.2-1.0) (0.2-1.0) Aspartate Amino Transf 197 U/L (15-37) 101 U/L (15-37) 51 U/L (15-37) (AST/SGOT) Alanine Aminotransferase 339 U/L (10-53) 228 U/L (10-53) 158 U/L (10-53) (ALT/SGPT) Alkaline Phosphatase 271 U/L 200 U/L 170 U/L (45-117) (45-117) (45-117) Albumin 2.9 GM/DL 2.5 GM/DL 2.4 GM/DL (3.4-5.0) (3.4-5.0) (3.4-5.0) White Blood Count 11.4 TH/MM3 (4.0-11.0) Neutrophils (%) (Auto) 92.9 % 81.0 % (16.0-70.0) (16.0-70.0) Lymphocytes (%) (Auto) 3.0 % (9.0-44.0) Neutrophils # (Auto) 10.6 TH/MM3 (1.8-7.7) Lymphocytes # (Auto) 0.3 TH/MM3 (1.0-4.8) Potassium Level 3.0 MEQ/L 3.1 MEQ/L (3.5-5.1) (3.5-5.1) Calcium Level 7.9 MG/DL 7.7 MG/DL (8.5-10.1) (8.5-10.1) Iron Level 39 MCG/DL (50-170) Total Iron Binding Capacity 196 MCG/DL (250-450) Percent Iron Saturation 19.9 % (20-50) Total Protein 6.0 GM/DL 5.8 GM/DL (6.4-8.2) (6.4-8.2) PE at Discharge GENERAL: SKIN: Warm and dry. HEAD: Atraumatic. Normocephalic. EYES: Pupils equal and round. No scleral icterus. No injection or drainage. ENT: No nasal bleeding or discharge. Mucous membranes pink and moist. NECK: Trachea midline. No JVD. CARDIOVASCULAR: Regular rate and rhythm. RESPIRATORY: No accessory muscle use. Clear to auscultation. Breath sounds equal bilaterally. GASTROINTESTINAL: Abdomen soft, non-tender, nondistended. Hepatic and splenic margins not palpable. MUSCULOSKELETAL: Extremities without clubbing, cyanosis, or edema. No obvious deformities. NEUROLOGICAL: Awake and alert. No obvious cranial nerve deficits. Motor grossly within normal limits. Five out of 5 muscle strength in the arms and legs. Normal speech. PSYCHIATRIC: Appropriate mood and affect; insight and judgment normal. Hospital Course Patient admitted and started on rocephin 1 gm IV daily u/c/s gm negative satnam ID pending ,but did respond to antibiotic with improvement in labs correction dehydration ,did have elevation LFT which is slowly coming back to normal will be rechecked as out patient did have ? abnormality on ultrasound and CT to uterine area and can follow this up thru PCP and may refer to ACUTE CARE PHYSICAL THERAPIST . GI has ordered additional tests and if abnormal can refer to GI as out patient . Patient will be discharged on IV rocephin 1gm can use hep lock for IV daily for at least 3 more days will receive today's dose before leaving hospital. Note potassium was low did give po potassium before discharge and called in prescription for ktab 8meq daily recheck cmp this week. Follow up PCP 1 week. Pt Condition on Discharge: Good Discharge Disposition: Disch w/ Home Health Serv Discharge Instructions DIET: Follow Instructions for: Heart Healthy Diet Activities you can perform: Regular-No Restrictions New Medications: Potassium Chloride ER (Potassium Chloride ER) 8 Meq Cap 8 MEQ PO DAILY daily Electrolyte Replacement #30 Ref 0 CAP NS Continued Medications: Diltiazem (Diltiazem) 30 Mg Tab 15 MG PO HS Angina #120 Ref 0 TAB Multiple Vitamin (Multiple Vitamin) 1 Tab 1 TAB PO EVERY OTHER DAY Nutritional Supplement Ref 0 TAB Omeprazole Magnesium (Prilosec) 20 Mg Tab 2 TAB PO DAILY Zolpidem (Ambien) 5 Mg Tab 5 MG PO HS PRN INSOMNIA Ref 0 TAB Discontinued Medications: Ciprofloxacin (Cipro) 500 Mg Tab 500 MG PO DAILY Infection Ref 0 TAB Additional Information rocephin 1 gm IV daily wednesday ,wednesday thru [facility] Rodrigo Alatorre MD Aug 03, 2016 10:30
[2016-08-03] MEDS ORDERED: CEFT1INJ2 IV (10:33)
[2016-08-03] MEDS ORDERED: POTASSIUM CHLORIDE 20 MEQ CONTROLLED RELEASE TAB PO ONE (10:45)
[2016-08-03] MEDS: cefTRIAXone INJ 1,000 MG in SODIUM CHLORIDE 0.9% INJ 100 ML IV SCH (10:58)
[2016-08-03 14:31] LABS: ANA SCREEN NEG (NEG)
[2016-08-06 03:51] LABS: MITOCHONDRIAL ABS LESS THAN 20.0 U (())
== END 2016-08-03 11:56 | disposition home health service (06) | DRG 690 ==
LOC: PHED 11:17 → PHEDA 13:23 → PH3A 15:08
PROVIDERS: ADMIT Internal Medicine; ATTEND Internal Medicine
DX: N39.0 Urinary tract infection, site not specified (principal); E86.0 Dehydration; I10 Essential (primary) hypertension; K21.9 Gastro-esophageal reflux disease without esophagitis; M81.0 Age-related osteoporosis without current pathological fracture; Z85.048 Personal history of other malignant neoplasm of rectum, rectosigmoid junction, and anus; Z85.41 Personal history of malignant neoplasm of cervix uteri; Z92.3 Personal history of irradiation
CPT/HCPCS: 74177; 76705; 76775; 76856; 80053; 80074; 81001; 82103; 82390; 83520; 83540; 83550; 85025; 86038; 86256; 87077; 87086; 87186; 96361; 96374; 96375; C9113; J0696; J0780; J1200; J2270; J7030; Q9967

== ENCOUNTER 2016-09-04 22:36 | Emergency (ER) | payer MEDICARE ==
[~2016-09-04] VITALS: Ht 167.6 cm; Wt 90.0 kg
[~2016-09-04 22:36] MED LIST changes: +CEFT1INJ2 IV; -CEPH500C3 PO; -CIPR750T10 PO; +DILT30TA PO; -DILT31TA PO; +MULTTAB67 PO; -NITR25SU PO; +POTA8CAP PO; +PRIL20TA2 PO; -STOO100C PO
[2016-09-04 22:45] VITALS: BP 134/62; PULSE 115; RESP 18; TEMP 97.7; O2SAT 94
[2016-09-04] MEDS ORDERED: SODIUM CHLOR 0.9% 1000 ML INJ 1,000 ML IV SCH (23:29)
[2016-09-04] MEDS ORDERED: SODIUM CHLORIDE 0.9% FLUSH 10 ML FLUSH IV FLUSH PRN (23:30)
[2016-09-04] MEDS ORDERED: ONDANSETRON HCL 4 MG/2 ML VIAL IVP ONE (23:30)
[2016-09-04 23:44] VITALS: BP 128/61; PULSE 113; RESP 21; O2SAT 94
[2016-09-04] MEDS ORDERED: NITR1CAP36 PO (23:49)
[2016-09-05 00:30] LABS: ALKALINE PHOSPHATASE 86 U/L (45-117); TOTAL BILIRUBIN ADULT 0.9 MG/DL (0.2-1.0)
[2016-09-05 00:36] LABS: ALT (GPT) 64 U/L (10-53); ANION GAP 13 MEQ/L (5-15); BLOOD UREA NITROGEN 18 MG/DL (7-18); CHLORIDE 106 MEQ/L (98-107); GLOMERULAR FILTRATION RATE 52 ML/MIN (>89); SODIUM (NA) 141 MEQ/L (136-145)
[2016-09-05 00:41] LABS: EOSINOPHIL % 0.3 % (0.0-4.0); HEMATOCRIT 40.9 % (35.0-46.0); HEMO FLAGS DIFF FINAL; LYMPH % 1.8 % (9.0-44.0); LYMPHOCYTE # 0.1 TH/MM3 (1.0-4.8); MEAN CELL VOLUME 89.8 FL (80.0-100.0); MEAN CORPUSCULAR HGB CONC 33.4 % (32.0-36.0); MONO % 0.8 % (0.0-8.0); NEUT % 97.1 % (16.0-70.0); PLATELET COUNT 112 TH/MM3 (150-450); RED BLOOD COUNT 4.55 MIL/MM3 (4.00-5.30); RED CELL DISTRIBUTION WIDTH 14.4 % (11.6-17.2); WHITE BLOOD COUNT 8.3 TH/MM3 (4.0-11.0)
[2016-09-05] MEDS ORDERED: MORPHINE SULFATE 8 MG/ML INJ IM ONE (00:45)
[2016-09-05 00:47] VITALS: BP 128/61; PULSE 108; RESP 21; O2SAT 94
[2016-09-05 00:57] LABS: AST (GOT) 97 U/L (15-37); POTASSIUM 4.2 MEQ/L (3.5-5.1)
[2016-09-05] MEDS ORDERED: PROMETHAZINE INJ 25 MG/ML VIAL IM ONE (02:00)
[2016-09-05] MEDS ORDERED: IOHEXOL 350 MG/ML 10 ML VIAL (for RAD DIAG) IV ONE (02:15)
--- NOTE | 2016-09-05 02:44 | RADRPT ---
EXAM DATE/TIME: 09/05/2016 02:12 [facility] COMPARISON: No previous studies available for comparison. INDICATIONS : Abdominal and back pain. IV CONTRAST: 96 cc Omnipaque 350 (iohexol) IV ORAL CONTRAST: No oral contrast ingested. RADIATION DOSE: 16.55 CTDIvol (mGy) MEDICAL HISTORY : cervical and anal CA 25 years ago SURGICAL HISTORY : Cholecystectomy. ENCOUNTER: Initial ACUITY: 1 day PAIN SCALE: 7/10 LOCATION: abdomen TECHNIQUE: Volumetric scanning of the abdomen and pelvis was performed. Using automated exposure control and ad justment of the mA and/or kV according to patient size, radiation dose was kept as low as reasonably achievable to obtain optimal diagnostic quality images. DICOM format image data is available electro nically for review and comparison. FINDINGS: LOWER LUNGS: The visualized lower lungs are clear. LIVER: Homogeneous density without lesion. There is no dilation of the biliary tree. Gallbladder surgically absent. SPLEEN: Normal size without lesion. PANCREAS: Within normal limits. KIDNEYS: Normal in size and shape. There is no mass, stone or hydronephrosis. ADRENAL GLANDS: Within normal limits. VASCULAR: Severe atherosclerotic changes involving aorta and branch vessels. No evidence of aneurysm BOWEL/MESENTERY: The stomach, small bowel, and colon demonstrate no acute abnormality. There is no free intraperitone al air or fluid. ABDOMINAL WALL: Within normal limits. RETROPERITONEUM: There is no lymphadenopathy. BLADDER: No wall thickening or mass. REPRODUCTIVE: There is a central low density in the uterus which may be a fibroid. No free pelvic fluid or adnexal mass INGUINAL: There is no lymphadenopathy or hernia. MUSCULOSKELETAL: Degenerative changes in the spine and hips CONCLUSION: No acute CT findings in the abdomen or pelvis. Chris Mackey MD on September 05, 2016 at 2:36 Board Certified Radiologist. This report was verified electronically.
[2016-09-05] MEDS ORDERED: CEPH-460 PO (03:12)
--- NOTE | 2016-09-05 03:13 | PD ---
HPI Chief Complaint: Back/ Neck Pain or Injury Time Seen by Provider: 23:28 Travel History International Travel<30 days: No Contact w/Intl Traveler<30days: No Traveled to known affect area: No History of Present Illness HPI 76-year-old female reports nausea vomiting diarrhea. She states it was severe. She states she had at least 10 episodes of each. It was nonbloody. She arrives complaining of back pain as well as abdominal pain and dehydration. She reports undergoing a diagnoses of urinary tract infection earlier today and was prescribed antibiotics. Shortly after she took Macrobid the nausea and vomiting started. Additional complaints include xerostomia. No chest pain or shortness of breath. Last oral intake prior to onset of the vomiting diarrhea was a sandwich which tasted normal to her. Otherwise no idiosyncratic food intake. PFSH Past Medical History Arthritis: Yes Asthma: No Blood Disorders: No Anxiety: No Depression: No Heart Rhythm Problems: No Cancer: Yes (ANAL 25 years agp) Cardiovascular Problems: No Chest Pain: No Congestive Heart Failure: No COPD: No Diminished Hearing: No Endocrine: No Gastrointestinal Disorders: Yes (anal ca) GERD: No Genitourinary: Yes (recurrent uti's 2ndary to cervical ca 20 years states urethra damaged and h) Hiatal Hernia: No Immune Disorder: No Implanted Vascular Access Dvce: Yes Kidney Stones: No Musculoskeletal: Yes Neurologic: No Psychiatric: No Reproductive: No Respiratory: No Renal Failure: No Sleep Apnea: No Ulcer: No Tetanus Vaccination: > 5 Years Influenza Vaccination: Yes Menopausal: Yes Past Surgical History Abdominal Surgery: No Cardiac Surgery: No Cholecystectomy: Yes Ear Surgery: No Endocrine Surgery: No Eye Surgery: No Genitourinary Surgery: No Gynecologic Surgery: No Neurologic Surgery: No Oral Surgery: No Thoracic Surgery: No Other Surgery: No Social History Alcohol Use: No Tobacco Use: No Substance Use: No Allergies-Medications (Allergen,Severity, Reaction): Coded Allergies: Sulfa (Verified Allergy, Severe, 08/01/16) DISORIENTATION / VOMITING Reported Meds & Prescriptions Reported Meds & Active Scripts Active Zofran Odt (Ondansetron Odt) 4 Mg Tab 4 Mg SL Q8HR PRN Keflex (Cephalexin) 500 Mg Cap 500 Mg PO Q12H 5 Days Reported Nitrofurantoin Macrocrystal 100 Mg Cap 100 Mg PO BID Review of Systems Except as stated in HPI: all other systems reviewed are Neg Physical Exam Narrative GENERAL: 76-year-old female pleasant well-nourished well-developed SKIN: Focused skin assessment warm/dry. HEAD: Atraumatic. Normocephalic. EYES: Pupils equal and round. No scleral icterus. No injection or drainage. ENT: No nasal bleeding or discharge. Mucous membranes pink and moist. NECK: Trachea midline. No JVD. CARDIOVASCULAR: Heart rate about 110. Regular rhythm. RESPIRATORY: No accessory muscle use. Clear to auscultation. Breath sounds equal bilaterally. GASTROINTESTINAL: Soft. No focus of tenderness. MUSCULOSKELETAL: No obvious deformities. No clubbing. No cyanosis. No edema. NEUROLOGICAL: Awake and alert. No obvious cranial nerve deficits. Motor grossly within normal limits. Normal speech. PSYCHIATRIC: Appropriate mood and affect; insight and judgment normal. Data Data Last Documented VS Vital Signs Date Time Temp Pulse Resp B/P Pulse Ox O2 Delivery O2 Flow Rate FiO2 09/05/16 03:27 104 18 127/57 98 09/05/16 00:47 Room Air 09/04/16 22:45 97.7 Vital signs reviewed Orders Complete Blood Count With Diff (09/04/16 23:29) Comprehensive Metabolic Panel (09/04/16 23:29) Urinalysis - C+S If Indicated (09/04/16 23:29) Iv Access Insert/Monitor (09/04/16 23:29) Ecg Monitoring (09/04/16 23:29) Oximetry (09/04/16 23:29) Ondansetron Inj (Zofran Inj) (09/04/16 23:30) Sodium Chlor 0.9% 1000 Ml Inj (Ns 1000 M (09/04/16 23:29) Sodium Chloride 0.9% Flush (Ns Flush) (09/04/16 23:30) Morphine Inj (Morphine Inj) (09/05/16 00:45) Ct Abd/Pel W Iv Contrast(Rout) (09/05/16 01:16) Promethazine Inj (Phenergan Inj) (09/05/16 02:00) Iohexol 350 Inj (Omnipaque 350 Inj) (09/05/16 02:15) Labs Laboratory Tests Test 09/04/16 09/05/16 23:30 00:25 Sodium Level 141 MEQ/L Potassium Level 4.2 MEQ/L Chloride Level 106 MEQ/L Carbon Dioxide Level 22.0 MEQ/L Anion Gap 13 MEQ/L Blood Urea Nitrogen 18 MG/DL Creatinine 1.03 MG/DL Estimat Glomerular Filtration 52 ML/MIN Rate Random Glucose 113 MG/DL Calcium Level 9.3 MG/DL Total Bilirubin 0.9 MG/DL Aspartate Amino Transf 97 U/L (AST/SGOT) Alanine Aminotransferase 64 U/L (ALT/SGPT) Alkaline Phosphatase 86 U/L Total Protein 7.0 GM/DL Albumin 3.3 GM/DL White Blood Count 8.3 TH/MM3 Red Blood Count 4.55 MIL/MM3 Hemoglobin 13.6 GM/DL Hematocrit 40.9 % Mean Corpuscular Volume 89.8 FL Mean Corpuscular Hemoglobin 30.0 PG Mean Corpuscular Hemoglobin 33.4 % Concent Red Cell Distribution Width 14.4 % Platelet Count 112 TH/MM3 Mean Platelet Volume 9.8 FL Neutrophils (%) (Auto) 97.1 % Lymphocytes (%) (Auto) 1.8 % Monocytes (%) (Auto) 0.8 % Eosinophils (%) (Auto) 0.3 % Basophils (%) (Auto) 0.0 % Neutrophils # (Auto) 8.0 TH/MM3 Lymphocytes # (Auto) 0.1 TH/MM3 Monocytes # (Auto) 0.1 TH/MM3 Eosinophils # (Auto) 0.0 TH/MM3 Basophils # (Auto) 0.0 TH/MM3 CBC Comment DIFF FINAL Differential Comment MDM Medical Decision Making Medical Screen Exam Complete: Yes Emergency Medical Condition: Yes Medical Record Reviewed: Yes Differential Diagnosis Constipation, Gastritis, Acute Cholecystitis, Biliary Colic, Pancreatitis, ZAMUDIO , Hepatitis, Bowel Obstruction, Cystitis, Mesenteric Ischemia, AAA, Appendicitis , Renal Stone/Hydronephrosis, GERD, perforated viscous Narrative Course CBC & BMP Diagram 09/04/16 23:30 09/05/16 00:25 AST 97 ALT 64 Urinalysis performed at outside facility today revealed a positive UTI and was therefore not collected here. The patient is resting comfortably and feels better, is alert and in no distress. The patients results and examination findings were discussed. The repeat examination is unremarkable and benign. The history, exam, diagnostic testing, and current condition do not suggest any significant pathology to warrant further testing, continued ED treatment, admission, or surgical evaluation at this point. The vital signs have been stable. The patient does not have uncontrollable pain, intractable vomiting, or other significant symptoms. The patient's condition is stable and appropriate for discharge. The patient will pursue further outpatient evaluation with a primary care physician or other designated or consulting physician as indicated in the discharge instructions. The patient expressed understanding and was agreeable with this plan. Diagnosis Primary Impression: UTI (urinary tract infection) Qualified Code: N39.0 - Urinary tract infection without hematuria, site unspecified Additional Impressions: Elevated LFTs Dehydration Referrals: Primary Care Physician 2 days Additional Instructions: You have a choice when it comes to health care, and we are glad that you chose [facility]. Hopefully, we have met your expectations on today's visit. You are welcome to return to [facility] at any time, as we are committed to meeting the health care needs of our community. Med/Other Pt SpecificInfo: Prescription(s) given Scripts Ondansetron Odt (Zofran Odt)4 Mg Tab4 Mg SL Q8HR PRN (Nausea/Vomiting) #15 TAB Ref 0 Prov:Jeremie Henning MD 09/05/16 Cephalexin (Keflex)500 Mg [id number] Mg PO Q12H 5 Days Ref 0 Prov:Jeremie Henning MD 09/05/16 Disposition: 01 DISCHARGE HOME Condition: Stable Jeremie Henning MD Sep 05, 2016 03:13
[2016-09-05] MEDS ORDERED: ZOFR4TAB3 SL (03:17)
[2016-09-05 03:27] VITALS: BP 127/57
== END 2016-09-05 03:59 | disposition home or self-care (01) ==
LOC: NEPE 22:36
DX: N39.0 Urinary tract infection, site not specified (principal); R79.89 Other specified abnormal findings of blood chemistry; E86.0 Dehydration; Z85.41 Personal history of malignant neoplasm of cervix uteri
CPT/HCPCS: 74177; 80053; 85025; 96361; 96372; 96374; 99284; J2270; J2405; J2550; J7030; Q9967